=== PATIENT | female | born 1975 | race Caucasian/White ===

== ENCOUNTER → 2023-02-03 | Outpatient (CLI) | payer BC | LOC: COL.RAD 09:29 | DX: R10.11 Right upper quadrant pain (principal) ==

== ENCOUNTER → 2023-04-27 | Outpatient (CLI) | payer BC ==
[~2023-04-27] MED LIST: Albuterol 0.083% Neb Soln 2.5 MG/3 ML UD IH ONE; PERCOCET 325 MG1 TA2 PO; ZOFRAN ODT4 MG PO
== END ==
LOC: COL.CARD 15:06
DX: R06.02 Shortness of breath (principal)

== ENCOUNTER → 2023-04-28 | Outpatient (CLI) | payer BC ==
[~2023-04-28] MED LIST changes: +Methacholine Vial A (Clear Label Base-Cntrl) IH ONE; +Methacholine Vial B (Red Label) 0.0625 MG/ML 3 ML VIAL.NEB IH ONE; +Methacholine Vial C (Orange Label) 0.25 MG/ML 3 ML VIAL.NEB IH ONE; +Methacholine Vial D (Yellow Label) 1 MG/ML 3 ML VIAL.NEB IH ONE; +Methacholine Vial E (Green Label) 4 MG/ML 3 ML VIAL.NEB IH ONE
== END ==
LOC: COL.CARD 08:00
DX: R06.02 Shortness of breath (principal)
CPT/HCPCS: J7674